=== PATIENT | male | born 1990 | race Caucasian/White ===

== ENCOUNTER 2018-10-16 21:58 | Emergency (ER) | payer SELFPAY ==
[~2018-10-16] VITALS: Ht 172.7 cm; Wt 85.3 kg
[2018-10-16 22:04] VITALS: Ht 172.7 cm; Wt 85.3 kg
[2018-10-16 23:11] VITALS: BP 126/76
== END 2018-10-16 23:11 | disposition home or self-care (01) ==
LOC: ED 21:58
DX: S60.562A Insect bite (nonvenomous) of left hand, initial encounter (principal); S60.561A Insect bite (nonvenomous) of right hand, initial encounter; S80.862A Insect bite (nonvenomous), left lower leg, initial encounter; S80.861A Insect bite (nonvenomous), right lower leg, initial encounter; T78.49XA Other allergy, initial encounter; W57.XXXA Bitten or stung by nonvenomous insect and other nonvenomous arthropods, initial encounter; Y93.89 Activity, other specified; Y92.89 Other specified places as the place of occurrence of the external cause; Y99.8 Other external cause status
CPT/HCPCS: 86788; 86789; Q0163